=== PATIENT | female | born 1970 | race African-American/Black ===

== ENCOUNTER 2024-02-19 10:20 | Emergency (ER) | payer MEDICAID ==
[~2024-02-19] VITALS: Ht 165.1 cm; Wt 95.0 kg
[2024-02-19 10:27] VITALS: BP 115/67; PULSE 74; RESP 19; TEMP 98.3; O2SAT 99
[2024-02-19 11:53] LABS: CLARITY URINE CLEAR (CLEAR); COLOR URINE YELLOW (YELLOW); GLUCOSE URINE NEGATIVE (NEGATIVE); KETONES URINE NEGATIVE (NEGATIVE); LEUKOCYTE ESTERASE URINE 3+ (NEGATIVE); NITRITE URINE NEGATIVE (NEGATIVE); OCCULT BLOOD URINE 1+ (NEGATIVE); PROTEIN URINE NEGATIVE (NEGATIVE); SPECIFIC GRAVITY URINE 1.016 (1.005-1.030); UROBILINOGEN URINE 0.2 E.U./dL (0.2-1.0)
[2024-02-19 12:16] LABS: BACTERIA URINE 1+; SQUAMOUS EPITHELIAL CELL URINE 1+ /lpf (RARE/1+)
[2024-02-19 12:17] LABS: RBC URINE 0-2 /hpf (0-2); WBC URINE 15-25 /hpf (0-2)
[2024-02-19] MEDS ORDERED: NITR-87 MT (13:00)
[2024-02-19] MEDS ORDERED: IBUP-1525 MT (13:00)
[2024-02-19] MEDS ORDERED: TOPUD MT (13:00)
== END 2024-02-19 13:06 | disposition home or self-care (01) ==
LOC: ER 10:20
DX: N39.0 Urinary tract infection, site not specified (principal)
CPT/HCPCS: 81003; 87086; 99283; Z7610